=== PATIENT | female | born 1995 | race Two or more races ===

== ENCOUNTER 2018-08-06 18:30 | Emergency (ER) | payer OTHER ==
--- NOTE | 2018-08-06 19:48 | EDPHY ---
H & P Stated Complaint: Sudden LLQ pn 3H [employer]CH[employer], denies V/D, feels dizzy, no Hx. Burning pn. Time Seen by Provider: 08/06/18 19:37 HPI/ROS: CHIEF COMPLAINT: Left lower quadrant pain HISTORY OF PRESENT ILLNESS: 23-year-old female presents with left lower quadrant pain. Sudden onset of severe left lower quadrant pain for hours ago. The pain waxed and waned and was associated with nausea. The pain has subsided and is now mild. No prior similar symptoms. Has an IUD in place, vaginal spotting occurred 2 weeks ago. No vaginal discharge, fever or urinary symptoms. REVIEW OF SYSTEMS: complete 10 point ROS reviewed and is negative except for the noted elements in the HPI - Personal History LMP (Females 10-55): IUD In Place Current Tetanus/Diphtheria Vaccine: Yes - Medical/Surgical History Hx Asthma: No Hx Chronic Respiratory Disease: No Hx Diabetes: No Hx Cardiac Disease: No Hx Renal Disease: No Hx Cirrhosis: No Hx Alcoholism: No Hx HIV/AIDS: No Hx Splenectomy or Spleen Trauma: No Other PMH: none - Social History Smoking Status: Never smoked Alcohol Use: Occasionally Drug Use: None - Physical Exam Exam: General Appearance: Alert, pleasant Eyes: Pupils equal and round, no conjunctival pallor ENT, Mouth: Mucous membranes moist Neck: Normal inspection Respiratory: Lungs are clear to auscultation Cardiovascular: Regular rate and rhythm Gastrointestinal: Abdomen is soft, left lower quadrant tenderness Neurological: A&O, nonfocal exam Skin: Warm and dry Extremities: Normal inspection Psychiatric: Mood and affect normal Constitutional: Initial Vital Signs Temperature (C) 36.3 C 08/06/18 18:34 Heart Rate 77 08/06/18 18:34 Respiratory Rate 16 08/06/18 18:34 Blood Pressure 124/67 H 08/06/18 18:34 O2 Sat (%) 94 08/06/18 18:34 O2 Delivery Mode Room Air Allergies/Adverse Reactions: No Known Allergies Allergy (Unverified 08/06/18 18:34) Home Medications: Medication Instructions Recorded NK [No Known Home Meds] 08/06/18 Medical Decision Making ED Course/Re-evaluation: This patient presents with sudden onset of severe left lower quadrant pain, concerning for ovarian cyst versus ectopic . Stat test is negative. Pelvic ultrasound obtained and reveals no evidence of ovarian cyst. Results discussed with the patient and her mother, who is an commercial construction project manager nurse. The patient continues to feel better, with mild pain. Options discussed, including CT scan to further evaluate cause of abdominal pain, including ureteral calculus. The patient declines CT scan. Prefers to go home with close observation at home. Abd exam: mild LLQ tenderness, no peritoneal signs. Abdominal pain precautions given. Toradol 30 mg IV given prior to discharge. Differential Diagnosis: Differential diagnosis includes though it is not limited to ectopic , ovarian cyst, ovarian torsion, PID, UTI, appendicitis. - Data Points Laboratory Results: Laboratory Results 08/06/18 19:35 08/06/18 19:35 Medications Given: Discontinued Medications Ketorolac Tromethamine (Toradol) 30 mg IVP EDNOW ONE Stop: 08/06/18 20:16 Last Admin: 08/06/18 20:29 Dose: 30 mg Departure - Departure Disposition: Home, Routine, Self-Care Clinical Impression: Abdominal pain Qualifiers: Abdominal location: left lower quadrant Qualified Code(s): R10.32 - Left lower quadrant pain Condition: Fair Instructions: Acute Abdominal Pain (ED) Additional Instructions: Your ultrasound is normal. You do not have an ovarian cyst. You received Toradol, a pain medication, in the emergency department. Sometimes we are unable to diagnose an obvious cause of abdominal pain in the Emergency Department. Based upon our evaluation today, we see no obvious explanation for your pain. Because more serious conditions can be difficult to diagnose early in the course of their presentation, we ask that you return to the Emergency Department in 12-24 hours for a recheck if you are still having pain. This is necessary to exclude the development of a more serious condition such as appendicitis or other intra-abdominal emergency. In the event your pain markedly increases before that time or you develop intractable vomiting or fever return to the Emergency Department immediately. Referrals: Santos Barboza MD [Medical Doctor] - As per Instructions
[2018-08-06 19:59] LABS: PLATELET COUNT 308 10^3/uL (150-400)
[2018-08-06] MEDS ORDERED: KETOROLAC 15 MG/1 ML SDV IVP ONE (20:15)
[2018-08-06 20:48] VITALS: BP 111/76
== END 2018-08-06 20:48 | disposition home or self-care (01) ==
DX: R10.32 Left lower quadrant pain (principal)
CPT/HCPCS: 96374; J1885